=== PATIENT | female | born 1995 | race Two or more races ===

== ENCOUNTER 2016-09-03 11:04 | Outpatient (CLI) | payer MEDICAID | END 2016-09-03 11:05 | disposition home or self-care (01) | DX: Z36 Encounter for antenatal screening of mother (principal) ==

== ENCOUNTER 2016-09-04 14:57 | Emergency (ER) | payer MEDICAID | END 2016-09-04 15:45 | disposition home or self-care (01) | DX: O99.89 Other specified diseases and conditions complicating pregnancy, childbirth and the puerperium (principal); R04.0 Epistaxis; Z3A.17 17 weeks gestation of pregnancy ==

== ENCOUNTER 2016-10-01 12:26 | Outpatient (CLI) | payer MEDICAID | END 2016-10-01 12:27 | disposition home or self-care (01) | DX: Z36 Encounter for antenatal screening of mother (principal) ==

== ENCOUNTER 2016-10-14 09:25 | Outpatient (CLI) | payer MEDICAID | END 2016-10-14 09:26 | disposition home or self-care (01) | DX: Z36 Encounter for antenatal screening of mother (principal) ==

== ENCOUNTER 2016-11-05 09:44 | Outpatient (CLI) | payer MEDICAID | END 2016-11-05 09:45 | disposition home or self-care (01) | DX: O09.70 Supervision of high risk pregnancy due to social problems, unspecified trimester (principal) ==

== ENCOUNTER 2017-01-17 08:00 | Outpatient (CLI) | payer MEDICAID | END 2017-01-17 08:01 | disposition home or self-care (01) | LOC: LAB.R 08:00 | PROVIDERS: ATTEND Obstetrics & Gynecology | DX: Z36 Encounter for antenatal screening of mother (principal) | CPT/HCPCS: 87081; 87797 ==

== ENCOUNTER 2017-01-17 10:05 | Outpatient (CLI) | payer MEDICAID ==
[2017-01-17 10:20] VITALS: BP 107/65
--- NOTE | 2017-01-18 14:03 | HISTORY & PHYSICAL EXAMINATION ---
DATE OF ADMISSION: 01/17/2017 DIAGNOSES 1. Maternal tachycardia. 2. Irregular contractions. 3. Category 1 heart tracing. 4. 36 week 3 day gestation. HISTORY OF PRESENT ILLNESS: The patient is a 21-year-old , 3, para 0-0-2-0 at roughly 36 weeks gestation who was noted to be fernanda on office exam and thought to be possibly in early labor. She reported mild dyspnea and maternal pulse was tachycardic being over 100. She was evaluated in labor and delivery and essentially labor was ruled out. Maternal rhythm strip shows sin us tachycardia with a rate over 100. A 12-lead EKG was not accomplished, though ordered. The patient was stable and allowed to go home with instructions. She will be seen next week for her routine OB vi sit. If maternal tachycardia continues, would recommend a 12-lead EKG and assessment at that time. Note, unable to get in to [facility] to make an order to document this on the office EHR. JOB #: [id number] EXT JOB #:[id number]
== END 2017-01-17 12:05 | disposition home or self-care (01) ==
LOC: WFO 10:05 → OB 10:06 → WFO 12:05
PROVIDERS: ATTEND Obstetrics & Gynecology
DX: O99.89 Other specified diseases and conditions complicating pregnancy, childbirth and the puerperium (principal); R00.0 Tachycardia, unspecified; Z3A.36 36 weeks gestation of pregnancy; Z36 Encounter for antenatal screening of mother
CPT/HCPCS: 87081; 87797; 93041; 99213

== ENCOUNTER 2017-02-14 00:10 | Outpatient (CLI) | payer MEDICAID ==
[2017-02-14 04:08] VITALS: BP 120/70
== END 2017-02-14 03:50 | disposition home or self-care (01) ==
LOC: WFO 00:10 → OB 00:11 → WFO 03:50
PROVIDERS: ATTEND Obstetrics & Gynecology
DX: Z34.83 Encounter for supervision of other normal pregnancy, third trimester (principal)
CPT/HCPCS: 99213

== ENCOUNTER 2017-02-14 21:34 | Inpatient (IN) | payer MEDICAID ==
[2017-02-14] MEDS: LACTATED RINGERS 1,000 ML IV SCH ×2 (22:00→23:00)
[2017-02-14] MEDS ORDERED: SODIUM CHLORIDE FLUSH 0.9% 10 ML SYRINGE IVP ONE (22:08)
[2017-02-14] MEDS ORDERED: fent/BUPIV 2 MCG/0.125% 250 ML EP ONE (22:17)
[2017-02-14] MEDS ORDERED: SODIUM CHLORIDE FLUSH 0.9% 10 ML SYRINGE IVP PRN (22:28)
[2017-02-14 22:32] LABS: BASOPHILS # (AUTO) 0.1 10^3/uL (0.0-0.1); BASOPHILS % (AUTO) 0.4 %; EOSINOPHILS % (AUTO) 0.2 %; LYMPHOCYTES # (AUTO) 2.5 10^3/uL (1.5-3.5); LYMPHOCYTES % (AUTO) 15.7 %; MEAN CORPUSCULAR HEMOGLOBIN 30.1 pg (27.0-31.0); MEAN CORPUSCULAR HGB CONC 35.4 g/dL (32.0-36.0); MONOCYTES # (AUTO) 1.2 10^3/uL (0.0-1.0); MONOCYTES % (AUTO) 7.9 %; NEUTROPHILS % (AUTO) 75.8 %; RED CELL DISTRIBUTION WIDTH 15.5 % (12.0-15.0); UNCORRECTED WHITE BLOOD COUNT 15.8 x10^3/uL; WHITE BLOOD COUNT 15.8 x10^3/uL (4.8-10.8)
--- NOTE | 2017-02-15 01:16 | PROVIDER PROGRESS NOTE ---
Labor Progress Note - Instructions Bigelow/Slash: -Left hand click circles element as positive or present. -Right hand click slashes element as negative or not present. - Uterine Monitoring Uterine Monitoring Mode: positive: External toco Contraction Frequency (min/apart): Q4 min Contraction Intensity: positive: Mild to moderate Uterine Resting Tone: positive: Soft - Monitoring Monitor Mode: positive: External ultrasound Heart Rate Baseline: 150 Heart Rate Variability: positive: Moderate (6-25 bmp) Accelerations: positive: Present, 15x15 Decelerations: positive: None Strip Review: positive: Category I - Vaginal Exam Dilation (in cm): 9 Effacement (%): 90% Station: positive: 1 Cervical Position: positive: Anterior - Labor Progress Note Labor Progress Note/Additional Text: Patient sleeping while laboring down w dense epidural.
[2017-02-15] MEDS ORDERED: OXYTOCIN/LACTATED RINGERS 250 ML IV ONE ×2 (02:02→05:55)
[2017-02-15] MEDS ORDERED: MINERAL OIL LIGHT 10 ML MC ONE (02:04)
--- NOTE | 2017-02-15 02:41 | PROVIDER PROGRESS NOTE ---
Labor Progress Note - Instructions Peck/Slash: -Left hand click circles element as positive or present. -Right hand click slashes element as negative or not present. - Uterine Monitoring Uterine Monitoring Mode: positive: External toco Contraction Frequency (min/apart): 3-6 min Contraction Intensity: positive: Mild Uterine Resting Tone: positive: Soft - Monitoring Monitor Mode: positive: External ultrasound Heart Rate Baseline: 140 Heart Rate Variability: positive: Moderate (6-25 bmp) Accelerations: positive: Present, 15x15 Decelerations: positive: None Strip Review: positive: Category I - Vaginal Exam Dilation (in cm): 10 Station: positive: 1 Cervical Position: positive: Anterior - Labor Progress Note Labor Progress Note/Additional Text: Slower progress w contractions lessening -- Augmentation. AROM Clear
[2017-02-15] MEDS ORDERED: OXYTOCIN/LACTATED RINGERS 250 ML IV SCH (03:00)
[2017-02-15] MEDS ORDERED: LIDOCAINE 1% 50 ML MDV ONE (04:41)
[2017-02-15] MEDS ORDERED: miSOPROStol 200 MCG TABLET ONE ×3 (04:50→04:52)
--- NOTE | 2017-02-15 04:51 | HISTORY & PHYSICAL EXAMINATION ---
DATE OF ADMISSION: 02/14/2017 ADMISSION DIAGNOSES 1. Term , in labor. 2. Ruptured membranes. 3. Rubella nonimmune. HISTORY OF PRESENTING ILLNESS: The patient is a 21-year-old , 3, para 0-0-2-0, woman who [facility] and notes are regular strong uterine contractions beginning at 0800. Shortly after presentation to the hospital, she ruptured membranes, with clear fluid. The patient's EDC is based on an LMP of 05/07 and confirmatory 8-week ultrasound; EDC 11 February. She has no signs or symptoms of preeclampsia. She has no fevers, chills, UTI symptoms, or recent illness. STANDARD LABS: Blood type O positive. Antibody screen negative. GC chlamydia negative. HIV negative. Hepatitis B surface antigen negative. RPR negative. Rubella nonimmune. Quad screen negative. GBS negative. Glucola challenge test normal at 93. PAST MEDICAL HISTORY: The patient had abnormal Pap tests prior to . Searching for a record of colposcopy. On retesting, it reverted to normal. PAST SURGICAL HISTORY: None. ALLERGIES: NO KNOWN DRUG ALLERGIES. MEDICATIONS 1. vitamins. 2. Iron. SOCIAL HISTORY: . [employer]. High School graduate. Reformed smoker that stopped 12 months ago. No drug or alcohol use. FAMILY HISTORY: Hypertension. No gynecologic cancer. No known inheritable disease, chromosomal abnormalities, or unexplained retardation. REVIEW OF SYSTEMS CONSTITUTIONAL: Negative. HEENT: Negative. PULMONARY: Negative. CARDIAC: Negative. GASTROINTESTINAL: Negative. GENITOURINARY: Reference HPI, plus reference and records. SKIN: Negative. MUSCULOSKELETAL: Negative. NEUROLOGIC: Negative. PSYCHOLOGIC: Negative. PHYSICAL EXAMINATION GENERAL: The patient is very uncomfortable in obvious labor contractions. VITAL SIGNS: Blood pressure 96/62. Temperature 97.6. HEENT: Supple neck. No thyromegaly. Dentition in good repair. Moist mucous membranes. Nonicteric sclerae. EOMI. LUNGS: Clear. CARDIAC: On cardiac exam, regular flow murmur of 2/6. No gallop. ABDOMEN: No hepatosplenomegaly. No tenderness. Gravid uterus. Contractions palpable of approximately every 4-1/2 minutes of moderate intensity. Baseline 130s, reactive. Good variability, category 1. EXTREMITIES: Non-edematous. NEUROLOGIC: No obvious sensory or motor deficit. LABORATORY DATA: Labs are pending. ASSESSMENT: This patient was evaluated on the and was found to be 1 cm and 50% effaced. There has been marked cervical change, and she is evidently in labor, progressing smartly. There are no concerns of well being, a category 1 strip. The patient is composed for the active phase, but does request an epidural. I anticipate an adequate pelvis for a 7-1/2 pound infant. PLAN 1. Admit. 2. IV fluid support. 3. Anesthesia called for epidural, but await a platelet count. 4. Supportive care. JOB #: [id number] EXT JOB #:[id number] MTDNiru
[2017-02-15] MEDS ORDERED: HYDROcod/ACETAM 5/325 MG TABLET PO PRN (05:55)
[2017-02-15] MEDS ORDERED: HYDROCORTISONE/PRAMOXINE 10 GM PR PRN (05:55)
[2017-02-15] MEDS ORDERED: WITCH HAZEL/GLYCERIN 1 EACH MED..PAD TOP PRN (05:55)
[2017-02-15] MEDS ORDERED: ONDANSETRON 4 MG/2 ML VIAL IVP PRN (05:55)
[2017-02-15] MEDS ORDERED: diphenhydrAMINE 25 MG CAPSULE PO PRN (05:55)
--- NOTE | 2017-02-15 06:00 | DELIVERY NOTE ---
Delivery Note - Instructions Cowlitz/Slash: -Left hand click circles element as positive or present. -Right hand click slashes element as negative or not present. - Labor Labor: positive: Spontaneous, Augmented by ARM - Delivery Method Delivery Method: positive: Spontaneous vaginal delivery - Presentation Presentation: positive: Vertex - Nuchal Cord Nuchal Cord: positive: None - Anesthetic Anesthetic Type: - Amniotic Fluid Description Amniotic Fluid Description: positive: Light meconium - Episiotomy Type Episiotomy Type: positive: None - Laceration Laceration: positive: 1st degree - Suture Suture Type: positive: Vicryl Suture Size: positive: 2-0 - Delivery Outcome Delivery Outcome: positive: Livebirth - [place] : positive: Placed in direct skin contact with mother, Bulb syringe sex: positive: Female - Cord Cord: positive: 3 vessels - Placenta Placenta: positive: Intact, Spontaneous - Estimated Blood Loss Estimated Blood Loss (in cc): 300 - Post Delivery Events Post Delivery Events: positive: No post delivery events
[2017-02-15] MEDS: ACETAMINOPHEN 325 MG TABLET PO SCH ×4 (06:14→16:59)
[2017-02-15] MEDS: IBUPROFEN 600 MG TABLET PO SCH ×3 (07:34→20:49)
[2017-02-15] MEDS: LACTATED RINGERS 1,000 ML IV SCH (09:42)
[2017-02-15] MEDS: SODIUM CHLORIDE FLUSH 0.9% 10 ML SYRINGE IVP SCH (09:42)
[2017-02-15] MEDS: DOCUSATE SODIUM 100 MG CAPSULE PO SCH ×2 (09:45→20:50)
--- NOTE | 2017-02-15 11:12 | PROCEDURE REPORT ---
DATE OF PROCEDURE: PRE-DELIVERY DIAGNOSES 1. Term , labor. 2. Rubella status is nonimmune. 3. Light meconium. POST-DELIVERY DIAGNOSES 1. Term , labor. 2. Rubella status is nonimmune. 3. Light meconium. NAME OF PROCEDURE: Manually-assisted vaginal delivery over an intact perineum of a living female . COMPLICATIONS: None. ESTIMATED BLOOD LOSS: 300. DRAINS: None. FINDINGS: At 0530 hours, a living female infant was born weighing 8 pounds 5.2 ounces, and scoring Apgars of 8/9. There were no congenital anomalies or trauma seen. There was a moderate amount of caput. There was light meconium- stained fluid at the time of delivery. Placenta was delivered spontaneously intact and was judged grade 3. There was no cord entanglement and the configuration was 3-vessel. There was light meconium stained fluid, but no staining of the membranes. Inspection of the perineum finds a minor first-degree midline laceration at the hymenal ring. This was very small and shallow, and closed with 3-0 Vicryl uneventfully. There were no other vaginal or vulvar lacerations. The cervix was intact. TECHNIQUE: The patient achieved completion at 0335 hours and began to push with good effort. At the time of completion, head was +1 to +2. She slowly brought the head to the perineum. She atraumatically crowned. Shoulders were delivered without difficulty. Infant was placed on the maternal abdomen for [id number] contact. Once the cord stopped pulsating, it was doubly clamped and transected. Shortly after, the placenta was delivered intact. There was only a shallow minor laceration, which was closed with a running stitch of 3-0 Vicryl. Mother, father and all bonded well. JOB #: [id number] EXT JOB #:[id number] [email or web address]
[2017-02-16] MEDS: ACETAMINOPHEN 325 MG TABLET PO SCH ×4 (00:20→18:46)
[2017-02-16] MEDS: IBUPROFEN 600 MG TABLET PO SCH ×4 (03:10→21:59)
[2017-02-16] MEDS: LACTATED RINGERS 1,000 ML IV SCH ×3 (03:54→14:17)
[2017-02-16] MEDS: SODIUM CHLORIDE FLUSH 0.9% 10 ML SYRINGE IVP SCH (07:39)
[2017-02-16] MEDS: DOCUSATE SODIUM 100 MG CAPSULE PO SCH ×2 (09:00→21:59)
--- NOTE | 2017-02-16 10:13 | PROVIDER PROGRESS NOTE ---
Subjective - General Admit Date: 02/14/17 Procedure Date: 02/15/17 Post Op Days: 1 Procedure Performed: NVD - Review of Systems Wound/Incisions: positive: Healing well, Other (Mild Nonfoul Rubra) General: positive: No symptoms HEENT: positive: No symptoms Pulmonary: positive: No symptoms Cardiovascular: positive: No symptoms Gastrointestinal: positive: Constipation Genitourinary: positive: No symptoms Musculoskeletal: positive: No symptoms Skin: positive: No symptoms Psychiatric: positive: No symptoms Objective - Patient Data Vital Signs: Vital Signs x48h Temp Pulse Resp BP Pulse Ox 02/16/17 07:55 95.5 F L 72 16 102/55 L 99 Weight: Weight 02/14/17 02/15/17 02/16/17 23:59 23:59 23:59 Weight (kg) 95.254 kg Intake & Output: Intake and Output Totals x24h 02/14/17 02/15/17 02/16/17 23:59 23:59 23:59 Intake Total 1000 1800 Output Total 1400 Balance 1000 400 - Lab Results Lab Results: 02/14/17 22:10 - Current Medications Current Medications: Current Medications Generic Name Dose Route Start Last Admin Trade Name Freq PRN Reason Stop Dose Admin Acetaminophen 650 mg 02/14/17 23:00 02/16/17 06:56 Tylenol PO 650 mg Q6H JAGJIT Administration Docusate Sodium 100 mg 02/15/17 09:00 02/16/17 09:00 Colace 100mg Capsule PO 100 mg BID JAGJIT Administration Lactated Ringer's 1,000 mls @ 100 mls/hr 02/15/17 06:00 02/16/17 07:39 Lr IV Not Given .Q10H JAGJIT Ibuprofen 600 mg 02/15/17 06:00 02/16/17 09:00 Motrin PO 600 mg Q6H JAGJIT Administration Sodium Chloride 10 ml 02/15/17 06:00 02/16/17 07:39 Normal Saline Flush 0.9% IVP Not Given Q8HR JAGJIT Exam - Exam Vital Signs: Vital Signs (72 hours) 02/15/17 02/15/17 02/15/17 05:31 05:45 06:00 Temperature 98.4 F Heart Rate [ 109 H 94 90 Brachial] Respiratory 20 18 18 Rate Blood Pressure 120/75 [Left Brachial artery] Blood Pressure 132/77 H 124/66 [Right Brachial artery] O2 Saturation 99 100 99 02/15/17 02/15/17 02/15/17 06:15 06:31 06:46 Temperature Heart Rate [ 88 80 79 Brachial] Respiratory 18 18 18 Rate Blood Pressure 112/75 [Left Brachial artery] Blood Pressure 117/67 119/70 [Right Brachial artery] O2 Saturation 02/15/17 02/15/17 02/15/17 07:36 12:40 16:00 Temperature 97.2 F L 97.2 F L Heart Rate [ 75 79 90 Brachial] Respiratory 16 16 16 Rate Blood Pressure [Left Brachial artery] Blood Pressure 118/66 107/60 110/61 [Right Brachial artery] O2 Saturation 99 99 02/15/17 02/16/17 02/16/17 20:30 00:31 07:55 Temperature 96.8 F L 96.4 F L 95.5 F L Heart Rate [ 91 94 72 Brachial] Respiratory 16 18 16 Rate Blood Pressure 114/66 102/62 102/55 L [Left Brachial artery] Blood Pressure [Right Brachial artery] O2 Saturation 99 General: Alert, Oriented x3, Cooperative HEENT: Mucous membr. moist/pink Lungs: Clear to auscultation Cardiovascular: Regular rate, No murmurs Extremities: No edema Skin: No rashes Neurological: Normal speech Psych/Mental Status: Mental status NL, Mood NL Assessment/Plan - Assessment/Plan Assessment: Recovering Well Require additional day of instruction & supportive care Plan: Miralax x1
[2017-02-16] MEDS ORDERED: POLYETHYLENE GLYCOL 3350 17 GM PACKET PO PRN (10:14)
[2017-02-17] MEDS: ACETAMINOPHEN 325 MG TABLET PO SCH ×2 (01:09→12:15)
[2017-02-17] MEDS: IBUPROFEN 600 MG TABLET PO SCH ×2 (04:32→10:43)
[2017-02-17] MEDS: DOCUSATE SODIUM 100 MG CAPSULE PO SCH (10:43)
[2017-02-17] MEDS ORDERED: MEASLES,MUMPS & RUBELLA VACC 0.5 ML VIAL SUBQ ONE (11:00)
--- NOTE | 2017-02-17 11:00 | Discharge Plan ---
Discharge Plan Disposition: 01 Home, Self Care Condition: Good Diet: Regular Activity Restrictions: Activity as Tolerated Shower Restrictions: No Driving Restrictions: No No Smoking: If you smoke, Please STOP! Call for help. Follow-up with: Chay Hurt MD [Provider Admit Priv/Credential] -
[2017-02-17 12:14] VITALS: BP 115/62
--- NOTE | 2017-02-17 12:20 | Labor Flowsheet ---
Labor Flowsheet Datetime Report Generated by CPN: 02/17/2017 12:19 Datetime: 02/17/2017 03:42 VITAL SIGNS NBP Sys/Diane/Mean (mmHg): 118 : 66 : 75 Pulse: 80 Datetime: 02/17/2017 03:40 Temperature (F): 96.8 Temperature (C): 36.0 Temperature (C): 36.0 Datetime: 02/15/2017 20:44 Stage of : Datetime: 02/15/2017 06:01 Respirations: 18 Datetime: 02/15/2017 05:30 UTERINE ACTIVITY Monitor Mode: External Frequency (min): 1-4 Quality: Strong Duration (sec): 60-90 Pattern: Normal: <= 5 Contractions in 10 Minutes Resting Tone (Palpate): Relaxed ASSESSMENT A Monitor Mode: External US FHR Baseline Rate : 130 Variability: Moderate 6-25 bpm Accelerations: 15X15 Decelerations: Variable Datetime: 02/15/2017 05:25 COMMUNICATION LaborFlag: Labor Datetime: 02/15/2017 05:23 MEDICATIONS Pitocin (milliunits): Increased to @ 5 Datetime: 02/15/2017 05:15 Contraction Comments: pushing well with contractions, head visible when pushing. Category: Category II Datetime: 02/15/2017 05:00 Pitocin Checklist: At Least 1 Acceleration of 15 bpm x 15 Seconds in 30 Minutes or Adequate Variabi lity; No More than 1 Late Deceleration Occurred in Past 30 Minutes; No More than 2 Variable Decelerat ions > 60 Seconds in Duration and decreasing >60 bpm in 30 minutes; No More than 5 Uterine Contractio ns in 10 Minutes for any 20 Minute Interval; Uterus Palpates Soft between Contractions Datetime: 02/15/2017 04:40 Comments: variable decels with pushes to 110s - 120's with return to baseline Datetime: 02/15/2017 04:32 VAGINAL EXAM Dilatation (cm): 10.0 Effacement (%): 100 Station: 2 Exam by: Dr. Hurt Datetime: 02/15/2017 04:31 SpO2 (%): 100 Datetime: 02/15/2017 04:23 Anesthesia Comments: epidural pump off per md request Datetime: 02/15/2017 04:15 FHR Baseline Changes: No Baseline Change Datetime: 02/15/2017 03:30 Patient Position/Activity: Birthing Ball Patient Care Comments: peanut ball Anesthesia Level Check: T6- Xyphoid Datetime: 02/15/2017 03:29 Hygiene: Angelina Care; Underpad Changed Datetime: 02/15/2017 03:25 PATIENT CARE Procedures: Sterile Vag Exam I/O Interventions: Straight Cath (ml) @ 400 Datetime: 02/15/2017 02:37 Membrane Status: Ruptured Membranes Rupture Method: Artificial Amniotic Fluid Color: Clear Amniotic Fluid Amount: Moderate Amniotic Fluid Odor: Normal Datetime: 02/15/2017 01:01 Temperature Route: Tympanic Datetime: 02/15/2017 00:56 PAIN Pain Presence: None/Denies Datetime: 02/14/2017 22:39 ANESTHESIA Epidural Procedure: Test Dose Datetime: 02/14/2017 22:30 PROCEDURE TIME OUT Procedure Verify: Correct Patient Identity; Accurate Procedure Consent Form; Agreement on Procedure to be Done; Correct Patient Position
--- NOTE | 2017-02-17 14:01 | DISCHARGE SUMMARY ---
DATE OF ADMISSION: 02/14/2017 DATE OF DISCHARGE: 02/17/2017 DIAGNOSES: 1. Term in labor with ruptured membranes. 2. Rubella nonimmune. PROCEDURES: Manually assisted normal vaginal delivery; Living female . COMPLICATIONS: None. HISTORY: The patient is a 21-year-old , 3, para 0-0-2-0 woman who presented in labor on the evening of 14 February. Blood type O positive, antibody screen negative, HIV negative, hepatitis B surface antigen negative, RPR negative, rubella nonimmune, GBS negative, normal Glucola test. Reference typewritten H and P. At the time of initial presentation she was approximately 4 cm with a Cat 1 strip. HOSPITAL COURSE: She was admitted and desired an Epidural. Epidural was uneventfully placed by Juvenal Liu. The patient went on to deliver over an intact perineum a living female infant weighing 8 lbs 5.2 ozand scoring Apgars of 8 /9. There was light meconium at the time of delivery, but this was not a factor. There was a first degree midline tear just inside the hymenal ring, which was uneventfully repaired. The patient recovered well. She required some work with her nursing and had intensive education sessions with the staff analyst. In the end, she did best with nipple carrizales. By post-delivery day #2, she felt well and desired discharge home. Warning signs were reviewed. She will followup in 6 weeks. DISCHARGE MEDICATIONS: 1. vitamins and iron. 2. [id number] Motrin. JOB #: [id number] EXT JOB #:[id number] [facility]
== END 2017-02-17 11:45 | disposition home or self-care (01) | DRG 775 ==
LOC: WFO 21:34 → OB 21:36 → WFO 21:57 → OB 21:58
PROVIDERS: ADMIT Obstetrics & Gynecology; ATTEND Obstetrics & Gynecology
PROC: 10E0XZZ Delivery of Products of Conception, External Approach (ICD-10-PCS; principal; 2017-02-15)
PROC: 0HQ9XZZ Repair Perineum Skin, External Approach (ICD-10-PCS; 2017-02-15)
PROC: 10907ZC Drainage of Amniotic Fluid, Therapeutic from Products of Conception, Via Natural or Artificial Opening (ICD-10-PCS; 2017-02-15)
PROC: 3E0134Z Introduction of Serum, Toxoid and Vaccine into Subcutaneous Tissue, Percutaneous Approach (ICD-10-PCS; 2017-02-17)
DX: O70.0 First degree perineal laceration during delivery (principal); O77.0 Labor and delivery complicated by meconium in amniotic fluid; Z23 Encounter for immunization; Z3A.40 40 weeks gestation of pregnancy; Z37.0 Single live birth
CPT/HCPCS: 59025; 85025; 86850; 86900; 86901; 99213